=== PATIENT | female | born 1955 | race Caucasian/White ===

== ENCOUNTER → 2019-10-02 16:12 | Outpatient (CLI) | payer BC, SELFPAY ==
[2019-10-02 10:05] VITALS: BMI 24.9
== END ==
LOC: LABSPEC 16:13
PROVIDERS: PCP Nurse Practitioner Adult Health; Referring Provider Nurse Practitioner Women's Health; Visit Provider Nurse Practitioner Women's Health
DX: N89.8 Other specified noninflammatory disorders of vagina (principal)
CPT/HCPCS: 87070; 87205

== ENCOUNTER → 2020-08-12 16:06 | Outpatient (CLI) | payer BC, SELFPAY ==
[2020-08-12 14:19] VITALS: BMI 23.8
[2020-08-17 21:34] LABS: HPV APTIMA, High Risk Negative (Negative)
== END ==
PROVIDERS: PCP Nurse Practitioner Adult Health; Referring Provider Nurse Practitioner Women's Health; Visit Provider Nurse Practitioner Women's Health
DX: Z12.4 Encounter for screening for malignant neoplasm of cervix (principal)
CPT/HCPCS: 87624; 88175; G0145

== ENCOUNTER → 2020-08-26 12:13 | Outpatient (CLI) | payer BC, SELFPAY ==
[2020-08-12 14:19] VITALS: BMI 23.8
--- NOTE | 2020-08-26 12:15 | US_ITS ---
STUDY: ULTRASOUND OF THE FEMALE PELVIS - COMPLETE REASON FOR EXAM: Female, 65 years old. left ovarian cyst LMP: Unknown. TECHNIQUE: Transabdominal and Transvaginal TECHNICAL QUALITY: Adequate. COMPARISON: None. FINDINGS: The uterus is anteverted and is in a midline position. The uterus measures 5.9 x 2.8 cm. There is a Nabothian cyst of the cervix. The endometrium measures 3.4 mm in thickness, and is fluid distended. There is no demonstrated endometrial mass. There is no demonstrated myometrial mass. I.U.D. - The patient does not have an I.U.D. tiny nonspecific echogenic focus in the endometrium measuring 1 x 2 x 1 mm The right ovary is visualized. The right ovary measures 1.5 x 0.9 x 0.8 cm. There is no right ovarian cyst or ovarian mass. There is no visualized right adnexal mass or complex lesion. There is normal arterial and normal venous vascularity. The left ovary is visualized. The left ovary measures 1.8 x 1.5 x 1.4 cm. 2 minimally complicated left ovarian cysts, largest of which measures 8 x 7 x 6 mm. There is no visualized left adnexal mass or complex lesion. There is normal arterial and normal venous vascularity. There is no fluid in the cul-de-sac. The pre void volume of the bladder was ml. The post void volume of the bladder was ml. Polycystic ovary disease: No. US/Pelvic (Non ) IMPRESSION: 1. Fluid distended endometrium with tiny echogenic nonspecific focus 2. Subcentimeter minimally complicated left ovarian cyst Electronically Signed: Rubin Ny DO at 10:51 EST Tel , Service support ,
--- NOTE | 2020-08-26 12:15 | US_ITS ---
STUDY: ULTRASOUND OF THE FEMALE PELVIS - COMPLETE REASON FOR EXAM: Female, 65 years old. left ovarian cyst LMP: Unknown. TECHNIQUE: Transabdominal and Transvaginal TECHNICAL QUALITY: Adequate. COMPARISON: None. FINDINGS: The uterus is anteverted and is in a midline position. The uterus measures 5.9 x 2.8 cm. There is a Nabothian cyst of the cervix. The endometrium measures 3.4 mm in thickness, and is fluid distended. There is no demonstrated endometrial mass. There is no demonstrated myometrial mass. I.U.D. - The patient does not have an I.U.D. tiny nonspecific echogenic focus in the endometrium measuring 1 x 2 x 1 mm The right ovary is visualized. The right ovary measures 1.5 x 0.9 x 0.8 cm. There is no right ovarian cyst or ovarian mass. There is no visualized right adnexal mass or complex lesion. There is normal arterial and normal venous vascularity. The left ovary is visualized. The left ovary measures 1.8 x 1.5 x 1.4 cm. 2 minimally complicated left ovarian cysts, largest of which measures 8 x 7 x 6 mm. There is no visualized left adnexal mass or complex lesion. There is normal arterial and normal venous vascularity. There is no fluid in the cul-de-sac. The pre void volume of the bladder was ml. The post void volume of the bladder was ml. Polycystic ovary disease: No. US/Transvaginal Non- IMPRESSION: 1. Fluid distended endometrium with tiny echogenic nonspecific focus 2. Subcentimeter minimally complicated left ovarian cyst Electronically Signed: Rubin Ny DO at 10:51 EST Tel , Service support ,
== END ==
PROVIDERS: PCP Nurse Practitioner Adult Health; Referring Provider Nurse Practitioner Women's Health; Visit Provider Nurse Practitioner Women's Health
DX: N83.202 Unspecified ovarian cyst, left side (principal)
CPT/HCPCS: 76830; 76856

== ENCOUNTER → 2020-09-16 10:31 | Outpatient (CLI) | payer BC, SELFPAY ==
[2020-08-12 14:19] VITALS: BMI 23.8
--- NOTE | 2020-09-16 10:33 | BI_ITS ---
MAMMOGRAPHY - BILATERAL SCREENING REASON FOR EXAM: Female, 65 years old. Routine annual screening examination. PERTINENT HISTORY: Non-contributory. TECHNIQUE: Digital bilateral breast mahnaz (3D mammographic acquisition) in the CC and MLO projections. 2-D mediolateral oblique (MLO) and craniocaudad (CC) views of both breasts were obtained. CAD: Full Field Digital Mammography with Computer Added Detection was performed. COMPARISON: Comparison is made with prior outside examination dated 08/21/2019. FINDINGS: Breast Composition: The breasts are heterogeneously dense, which may obscure small masses. There are no dominant masses or suspicious calcifications. No other significant abnormalities are identified. There has been no significant change since the prior study. BI/SCREEN MAMM (CAD) W/MAHNAZ BILAT IMPRESSION: Stable bilateral screening mammogram. Yearly follow-up mammogram recommended. (A) ASSESSMENT CATEGORY: BIRADS Category 1: Negative. A letter regarding these results will be sent to the patient by the facility within 30 days. Approximately 10% of breast cancers are not detected by mammography. A normal mammogram should not delay biopsy of a clinically suspicious abnormality. [id number] Electronically Signed: Daniel Reese, at 12:20 EST , Service support ,
== END ==
PROVIDERS: PCP Nurse Practitioner Adult Health; Referring Provider Obstetrics & Gynecology; Visit Provider Obstetrics & Gynecology
DX: Z12.31 Encounter for screening mammogram for malignant neoplasm of breast (principal)
CPT/HCPCS: 77063; 77067

== ENCOUNTER → 2020-11-25 08:20 | Outpatient (CLI) | payer BC, SELFPAY ==
[2020-08-12 14:19] VITALS: BMI 23.8
--- NOTE | 2020-11-25 08:24 | US_ITS ---
STUDY: ULTRASOUND OF THE FEMALE PELVIS - COMPLETE REASON FOR EXAM: Female, 65 years old. Abnormal us -- fluid in endometrium LMP: Postmenopausal. TECHNIQUE: Transabdominal and Transvaginal TECHNICAL QUALITY: Adequate. COMPARISON: Comparison is made with prior examination of 08/26/2020. FINDINGS: The uterus is anteverted and is in a midline position. The uterus measures 6 cm x 3.3 cm x 2.7 cm. Normal uterine cervix. The endometrium measures 2 mm in thickness, and is fluid distended. There is a 5 mm x 5 mm x 4 mm hypoechoic nodule in the lower uterine segment. This may represent a small polyp. There is no demonstrated myometrial mass. I.U.D. - The patient does not have an I.U.D. The right ovary is visualized. The right ovary measures 1.7 cm x 0.9 cm x 1 cm. There is no right ovarian cyst or ovarian mass. There is no visualized right adnexal mass or complex lesion. There is normal arterial and normal venous vascularity. The left ovary is visualized. The left ovary measures 1.8 cm x 1.8 cm x 1.6 cm. A dominant follicle is seen within the ovary measuring 1 cm x 1 cm x 0.8 cm. There is no visualized left adnexal mass or complex lesion. There is normal arterial and normal venous vascularity. There is no fluid in the cul-de-sac. The pre void volume of the bladder was 287 ml. US/Transvaginal Non- IMPRESSION: Fluid distention of the endometrium with findings suggestive of a 5 mm x 5 mm x 4 mm endometrial polyp. Dominant follicle is seen in the left ovary. Electronically Signed: Daniel Reese MD at 14:32 EDT , Service support ,
--- NOTE | 2020-11-25 08:24 | US_ITS ---
STUDY: ULTRASOUND OF THE FEMALE PELVIS - COMPLETE REASON FOR EXAM: Female, 65 years old. Abnormal us -- fluid in endometrium LMP: Postmenopausal. TECHNIQUE: Transabdominal and Transvaginal TECHNICAL QUALITY: Adequate. COMPARISON: Comparison is made with prior examination of 08/26/2020. FINDINGS: The uterus is anteverted and is in a midline position. The uterus measures 6 cm x 3.3 cm x 2.7 cm. Normal uterine cervix. The endometrium measures 2 mm in thickness, and is fluid distended. There is a 5 mm x 5 mm x 4 mm hypoechoic nodule in the lower uterine segment. This may represent a small polyp. There is no demonstrated myometrial mass. I.U.D. - The patient does not have an I.U.D. The right ovary is visualized. The right ovary measures 1.7 cm x 0.9 cm x 1 cm. There is no right ovarian cyst or ovarian mass. There is no visualized right adnexal mass or complex lesion. There is normal arterial and normal venous vascularity. The left ovary is visualized. The left ovary measures 1.8 cm x 1.8 cm x 1.6 cm. A dominant follicle is seen within the ovary measuring 1 cm x 1 cm x 0.8 cm. There is no visualized left adnexal mass or complex lesion. There is normal arterial and normal venous vascularity. There is no fluid in the cul-de-sac. The pre void volume of the bladder was 287 ml. US/Pelvic (Non ) IMPRESSION: Fluid distention of the endometrium with findings suggestive of a 5 mm x 5 mm x 4 mm endometrial polyp. Dominant follicle is seen in the left ovary. Electronically Signed: Daniel Reese MD at 14:32 EDT , Service support ,
== END ==
PROVIDERS: PCP Nurse Practitioner Adult Health; Referring Provider Nurse Practitioner Women's Health; Visit Provider Nurse Practitioner Women's Health
DX: N85.8 Other specified noninflammatory disorders of uterus (principal)
CPT/HCPCS: 76830; 76856

== ENCOUNTER 2020-12-29 11:21 | Day surgery (SDC) | payer BC, SELFPAY ==
[2020-12-02 10:06] VITALS: BMI 24.7
[2020-12-16 13:21] VITALS: BMI 24.7
[2020-12-29] VITALS (9 sets, daily range): BP systolic 116–147; BP diastolic 67–79; PULSE 62–86; RESP 16–18; TEMP 36.3–36.9; O2SAT 93–97; BMI 23.9
--- NOTE | 2020-12-29 | EMB_PTH ---
PATIENT: OZZY MENDEZ LOC[place] [facility] [place][id number] AGE/SX: 65/F ROOM: RE12/29/[address]: Dr. Delia Chowdary MD : 1955 BED: DIS: 12/29/2020 SPEC #: [id number] RECD: 12/29/20 15:46 STATUS: [place] #: [id number] GHULAM: 12/29/20 00:[address]: Delia Chowdary DEPT: SURGICAL PATHOLOGY RECD BY: [employer] ENTERED: 12/30/20 09:35 SP TYPE: ENDOM BX/C VIKI DR: Mary Edwards, MOISESC Tissues: Endometrium, NOS Procedures: Surgery Specimen Level IV HEADER OPERATION: Hysteroscopy, dilation and curettage, polypectomy PRE-OP DIAGNOSIS: Endometrial polyp TISSUE SUBMITTED: Endometrial curettings and polyp MICROSCOPIC DIAGNOSIS Endometrial curettings and polyp: Cystic atrophic endometrium. Fragments of myometrium, consistent with submucosal leiomyoma. Fragments of benign squamous epithelium. See comment. PATRICIA:bhavana 12/31/2020 COMMENT Clinical correlation and appropriate follow up are necessary. MICROSCOPIC DESCRIPTION Slides are reviewed. GROSS DESCRIPTION Received in fixative is one container labeled with the patient's name and designated endometrial curettings and polyp. The specimen consists of multiple irregular fragments of lloyd soft tissue that in aggregate measure 2.5 x 0.8 x 0.1 cm. The specimen is totally submitted in one cassette. / PATRICIA:bhavana 12/30/20 TC:1 CPT: 51618
--- NOTE | 2020-12-29 11:14 | HP.PCM.OB_ITS ---
HPI - General HPI Narrative OZZY MENDEZ, is a 65 F who presents hysteroscopy, D&C, polypectomy, possible symphion for suspected endometrial polyp PFSH Medical History (Updated 12/29/20 @ 11:[address] Delia Chowdary MD) Abnormal Pap smear of cervix Hyperlipidemia Hypertension Home Medications aspirin 81 mg tablet,delayed release 81 mg PO DAILY 10/02/19 [History Last Taken Unknown] calcium carbonate 500 mg calcium (1,250 mg) capsule 500 mg PO DAILY 10/02/19 [History Last Taken Unknown] losartan 50 mg tablet 50 mg PO DAILY 10/02/19 [History Last Taken Unknown] milk thistle 500 mg capsule 500 mg PO DAILY 10/02/19 [History Last Taken Unknown] Cholecalciferol (Vitamin D3) [Vitamin D3] 5,000 unit PO DAILY 12/22/20 [History Last Taken Unknown] albuterol sulfate 1 - 2 puff INHALATION Q4H PRN PRN 12/22/20 [History Last Taken Unknown] clobetasol 1 applic TOPICAL DAILY PRN 12/22/20 [History Last Taken Unknown] conjugated estrogens See Rx Instructions .ROUTE QODAY 12/22/20 [History Last Taken Unknown] Allergy/AdvReac Type Severity Reaction Status Date / Time No Known Allergies Allergy Verified 12/22/20 09:08 Family History Mother Lymphoma Father Leukemia Surgical History S/P cholecystectomy S/P dilation and curettage S/P tubal ligation Social History (Updated 12/16/20 @ 16:[address] Delia Chowdary MD) Smoking Status: Former smoker alcohol intake: current details: occasionally substance use type: does not use caffeine: Yes what type of physical activity do you participate in: none seatbelt use: sometimes do you feel safe at home: Yes additional social history: -Blue Patient works at a [employer] History 2 Elective abortions Hx Para 2 Spontaneous abortions Hx # Term Pregnancies Ectopic pregnancies Hx # Pregnancies Multiple births # of living children ROS Eyes Eyes: Reports systems reviewed and no addt'l complaints, except as documented ENT HEENT: Reports systems reviewed and no addt'l complaints, except as documented Cardiovascular Cardiovascular: Reports systems reviewed and no addt'l complaints, except as documented Respiratory/Chest Respiratory/Chest: Reports systems reviewed and no addt'l complaints, except as documented Gastrointestinal Gastrointestinal: Reports systems reviewed and no addt'l complaints, except as documented Genitourinary Genitourinary: Reports systems reviewed and no addt'l complaints, except as documented Musculoskeletal Musculoskeletal: Reports systems reviewed and no addt'l complaints, except as documented Integumentary Integumentary: Reports systems reviewed and no addt'l complaints, except as documented Neurologic Neurologic: Reports systems reviewed and no addt'l complaints, except as documented Psychiatric Psychiatric: Reports systems reviewed and no addt'l complaints, except as documented Endocrine Endocrinology: Reports systems reviewed and no addt'l complaints, except as documented Hematologic/Lymphatic Hematologic/Lymphatic: Reports systems reviewed and no addt'l complaints, except as documented Allergic/Immunologic Allergic/Immunologic: Reports systems reviewed and no addt'l complaints, except as documented Physical Exam Const alert, oriented x3, no apparent distress, average body habitus, healthy appearing and well nourished HEENT normocephalic and moist oral mucous membranes Head and Scalp: atraumatic Eyes PERRL and EOMs intact bilaterally Neck full ROM Resp normal respiratory effort, no retractions and no use of accessory muscles Cardio regular rate and regular rhythm GI soft to palpation, non-tender and non-distended Extremity normal to inspection and full ROM Skin no rashes or lesions noted Neuro no focal motor deficits and no sensory deficits noted Psych mental status grossly normal, affect normal, speech normal and activity/motor behavior normal Assessment & Plan Assessment/Plan (1) Endometrial polyp: Status: Acute Code(s): N84.0 - Polyp of corpus uteri Plan: Patient presents for? hysteroscopy, D&C, possible symphion for endometrial polyp Medical and surgical histories reviewed with patient. No new changes Again reviewed risks of surgery and post-op precautions. All questions answered ROS negative Consent signed with patient in office
[2020-12-29] MEDS: Lactated Ringers 1,000 ML 100 ML IV (12:23)
[2020-12-29 12:32] LABS: Hematocrit 40.7 % (37-47); Hemoglobin 13.5 g/dL (12.0-15.0); Mean Corp Hgb Conc 33.2 g/dL (32-36); Mean Corpuscular Hgb 29.3 pg (27.0-32.0); Mean Corpuscular Volume 88.3 fL (81-99); Mean Platelet Vol. 9.2 fl (6.2-12.0); Platelet Count 246 K/mm3 (150-450); RBC Distribution Width SD 38.4 fl (35.1-43.9); Red Blood Count 4.61 M/mm3 (4.2-5.4); White Blood Count 6.7 K/mm3 (4.4-11.0)
--- NOTE | 2020-12-29 13:52 | PCM.OPRPT ---
Problems Associated Problem List Diagnoses (1) Endometrial polyp: Report of Operation Date of Procedure: 12/29/20 Pre-Operative Diagnosis: Suspected endometrial polyp Post-Operative Diagnosis: Same Surgery/Procedure Performed:: Hysteroscopy, D&C, symphion polypectomy Description of Surgical Findings:: Normal-appearing uterine cavity with small endometrial polyp energy engineer: None Type of Anesthesia: MAC Specimen's removed: EMC and polyp Estimated Blood Loss (mL): 10 Description of Procedure: The patient was taken to the operating room where general anesthesia was obtained without difficulty. She was prepped and draped in the dorsolithotomy position with yellowfin stirrups. Weighted speculum was placed in the posterior aspect of the vagina and the anterior lip of the cervix was grasped with a single-tooth tenaculum. The cervix was sequentially dilated to accommodate the hysteroscope. The hysteroscope was then introduced into the uterine cavity and the above findings were noted. The symphion device was then introduced through the hysteroscope and activated to fully resect the Polyp. Hemostasis was noted. The procedure was deemed complete. All instruments were then removed from the vagina. The patient was again from anesthesia and taken to the recovery room in stable condition. [id number]: [id number] Hysteroscopy, EMC,Polypectomy
== END 2020-12-29 15:25 | disposition home or self-care (01) ==
LOC: SDC 11:24 → AC 11:24
PROVIDERS: PCP Nurse Practitioner Adult Health; Referring Provider Nurse Practitioner Adult Health; Visit Provider Obstetrics & Gynecology
PROC: 0UB98ZZ Excision of Uterus, Via Natural or Artificial Opening Endoscopic (ICD-10-PCS; CPT 58558; principal; 2020-12-29 12:45)
DX: N84.0 Polyp of corpus uteri (principal); E78.5 Hyperlipidemia, unspecified; I12.9 Hypertensive chronic kidney disease with stage 1 through stage 4 chronic kidney disease, or unspecified chronic kidney disease; N18.30 Chronic kidney disease, stage 3 unspecified; J44.9 Chronic obstructive pulmonary disease, unspecified; Z79.82 Long term (current) use of aspirin; Z79.899 Other long term (current) drug therapy; Z20.828 Contact with and (suspected) exposure to other viral communicable diseases; Z87.891 Personal history of nicotine dependence
CPT/HCPCS: 00952; 58558; 85027; 86850; 86900; 86901; 87426; 88305; C9803; J7120; J2405

== ENCOUNTER 2021-09-27 13:47 | Outpatient (CLI) | payer BC, SELFPAY ==
--- NOTE | 2021-09-27 13:50 | BI_ITS ---
MAMMOGRAPHY - BILATERAL SCREENING REASON FOR EXAM: Female, 66 years old. Routine annual screening examination. PERTINENT HISTORY: Non-contributory. TECHNIQUE: Digital bilateral breast mahnaz (3D mammographic acquisition) in the CC and MLO projections. 2-D mediolateral oblique (MLO) and craniocaudad (CC) views of both breasts were obtained. CAD: Full Field Digital Mammography with Computer Added Detection was performed. COMPARISON: Comparison is made with prior study dated 09/16/2020. FINDINGS: Breast Composition: The breasts are heterogeneously dense, which may obscure small masses. There are no dominant masses or suspicious calcifications. No other significant abnormalities are identified. There has been no significant change since the prior study. BI/SCRN MAMM (CAD)W/MAHNAZ BILAT IMPRESSION: Stable bilateral screening mammogram. Yearly follow-up mammogram recommended. (A) ASSESSMENT CATEGORY: BIRADS Category 1: Negative. A letter regarding these results will be sent to the patient by the facility within 30 days. Approximately 10% of breast cancers are not detected by mammography. A normal mammogram should not delay biopsy of a clinically suspicious abnormality. [id number] Electronically Signed: Daniel Reese MD at 20:23 EST , Service support ,
== END 2021-09-27 23:59 | disposition short-term general hospital (02) ==
LOC: OPBI 13:48
PROVIDERS: PCP Nurse Practitioner Adult Health; Referring Provider Nurse Practitioner Women's Health; Visit Provider Nurse Practitioner Women's Health
DX: Z12.31 Encounter for screening mammogram for malignant neoplasm of breast (principal)
CPT/HCPCS: 77063; 77067

== ENCOUNTER → 2022-10-03 | Outpatient (CLI) | payer MEDICARE, SELFPAY ==
--- NOTE | 2022-10-03 13:28 | BI_ITS ---
MAMMOGRAPHY - BILATERAL SCREENING REASON FOR EXAM: Female, 67 years old. Routine annual screening examination. PERTINENT HISTORY: Non-contributory. TECHNIQUE: Digital bilateral breast mahnaz (3D mammographic acquisition) in the CC and MLO projections. 2-D mediolateral oblique (MLO) and craniocaudad (CC) views of both breasts were obtained. CAD: Full Field Digital Mammography with Computer Added Detection was performed. COMPARISON: Comparison is made with prior study dated 03/27/2022 and 09/16/2020. FINDINGS: Breast Composition: There are scattered areas of fibroglandular density. There are no dominant masses or suspicious calcifications. No other significant abnormalities are identified. There has been no significant change since the prior study. BI/SCRN MAMM (CAD)W/MAHNAZ BILAT IMPRESSION: Stable bilateral screening mammogram. Yearly follow-up mammogram recommended. (A) ASSESSMENT CATEGORY: BIRADS Category 1: Negative. A letter regarding these results will be sent to the patient by the facility within 30 days. Approximately 10% of breast cancers are not detected by mammography. A normal mammogram should not delay biopsy of a clinically suspicious abnormality. [id number] Electronically Signed: Daniel Reese MD at 14:17 EST ,
== END | disposition home or self-care (01) ==
PROVIDERS: PCP Nurse Practitioner Adult Health; Visit Provider Nurse Practitioner Women's Health
DX: Z12.31 Encounter for screening mammogram for malignant neoplasm of breast (principal)
CPT/HCPCS: 77063; 77067

== ENCOUNTER → 2022-10-03 | Outpatient (CLI) | payer MEDICARE, SELFPAY | END | disposition home or self-care (01) | PROVIDERS: PCP Nurse Practitioner Adult Health; Visit Provider Nurse Practitioner Women's Health | DX: Z00.00 Encounter for general adult medical examination without abnormal findings (principal) ==

== ENCOUNTER 2023-02-15 10:00 | Outpatient (RCR) | payer MEDICARE, SELFPAY ==
--- NOTE | 2023-01-16 13:21 | HP.PTEVAL_ITS ---
Patient's Visit Information OZZY MENDEZ is a 67 year old F referred to Physical Therapy by Dr. Yash Fonseca, DO with a diagnosis of CERVICALGIA, SPRAIN OF JOINTS AND LIGAMENTS OF NECK. Date of Evaluation: 01/16/23 Physical Therapist: Tj Hsieh, PT, Cert MDT, OCS - Visit Plan Frequency: 2x /Week Duration: 4 Weeks Plan: PT INTERVETIONS POSTURAL EX'S ,STRENGTHENING ,MANAUL THERAPY STM ,POSTURE TRAINING AND US - Subjective This 67 y/o female presents to physical therapy for cervical pain. Patients seen Dr Fonseca had x-rays showed DDD .Then recommended PT .Patient has had symptoms ~ 2weeks. Symptoms described as ache in AM and PM Location bilateral neck and UT. 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 Alleviating factors cream . Patient denies paresthesia/tingling . Denies CHANCE/tinnitus/nausea. [id number] sleeping. Pain affects QOL and function . Patient goals to have no pain. SOCAIL: . 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 NEURO: denies paresthesia/tingling ,reflexes intact C5-6-7 2/3. AROM: BUE WFL. CERVICAL ROM: flexion min loss ,extension ,lateral flexion/rotation min loss. MMT: grossly 4/5 ,except shoulders 4-/5. PALAPTION: levator scapular tender - Special Tests C/S Radiculapathy - Left Upper limb tension test: Negative C/S Radiculapathy - Right Upper limb tension test: Negative C/S Radiculapathy - Left Spurlings: Negative C/S Radiculapathy - Right Spurlings: Negative C/S Radiculapathy - Left Cervical distraction: Negative C/S Radiculapathy - Right Cervical distraction: Negative C/S Radiculapathy - Left Relief test: Negative C/S Radiculapathy - Right Relief test: Negative Sharp Mary: Negative Vertebral Artery Test: Negative Alar Ligament Test: Negative Cervical Sitting: Protrusion - Mechanical Response: No effect Cervical Sitting: Protrusion - Symptoms During Testing: No effect Cervical Sitting: Protrusion - Symptoms After Testing: No effect Cervical Sitting: Retraction - Mechanical Response: No effect Cervical Sitting: Retraction - Symptoms During Testing: No effect Cervical Sitting: Retraction - Symptoms After Testing: No effect Cervical Sitting: Retraction-Extension - Mechanical Response: No effect Cerv Sitting: Retraction-Extension - Symptoms During Testing: No effect Cerv Sitting: Retraction-Extension - Symptoms After Testing: No effect Cervical Sitting: Sidebend Right - Mechanical Response: No effect Cervical Sitting: Sidebend Right - Symptoms During Testing: No effect Cervical Sitting: Sidebend Right - Symptoms After Testing: No effect Cervical Sitting: Sidebend Left - Mechanical Response: No effect Cervical Sitting: Sidebend Left - Symptoms During Testing: No effect Cervical Sitting: Sidebend Left - Symptoms After Testing: No effect Cervical Sitting: Rotation Right - Mechanical Response: No effect Cervical Sitting: Rotation Right - Symptoms During Testing: No effect Cervical Sitting: Rotation Right - Symptoms After Testing: No effect Cervical Sitting: Rotation Left - Mechanical Response: No effect Cervical Sitting: Rotation Left - Symptoms During Testing: No effect Cervical Sitting: Rotation Left - Symptoms After Testing: No effect Cervical Sitting: Flexion - Mechanical Response: No effect Cervical Sitting: Flexion - Symptoms During Testing: No effect Cervical Sitting: Flexion - Symptoms After Testing: No effect - Balance/Special Test Scores Oswestry Neck Score: 15 - Goals Goal 1:: I with HEP for neck Goal Time Frame: 4-6 Weeks Goal 2:: Patient improve posture for job demands 80% of the time Goal Time Frame: 4-6 Weeks Goal 3:: Patient to demonstrate 50% improvement with improved function and less pain Goal Time Frame: 4-6 Weeks Goal 4:: Patinet Goal Time Frame: 4-6 Weeks Goal 5:: Patient improve neck oswestry score by 5 points or > to improve function - Rehabilitation Potential Physical Therapy Diagnosis: This patient has neck pain with pain during position am motion testing 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 with decrease posture thus benefit from skilled PT Rehabilitation Potential: Good - Anticipated Interventions Patient/Client Instruction: Educate patient on: Condition, Plan of Care For the Purpose of:: To decrease pain, To increase ROM, To improve muscle performance and motor function, To increase tolerance to activity/condition/position, To improve performance and independence with ADL's, To decrease level of supervision to perform tasks, To improve ability of physical actions for home/community/work/leisure, To improve health of tissue, T o decrease soft tissue restriction, To increase flexibility/ROM, To reduce risk of recurrence Therapeutic Exercise to Include: Strength training, Body mechanics, Postural training, Flexibilty training, Active ROM For the Purpose of:: To decrease pain, To increase ROM, To improve muscle performance and motor function, To improve ability to perform ADL's, To increase tolerance to activity/condition/position, To improve ability of physical actions for home/community/work/leisure, To improve health of tissue, To decrease soft tissue restriction, To increase flexibility/ROM Manual Therapy Techniques to Include: Mobilization, Soft tissue mobilization For the Purpose of:: To decrease pain, To improve nutrient delivery to tissue, To increase oxygenation perfusion, To decrease soft tissue restriction, To increase flexibility/ROM TENS: Yes IF ES: Yes Cryotherapy (ice pack, ice massage): Yes Thermo therapy (hot pack): Yes Ultrasound (thermal/non thermal): Yes For the Purpose of:: To decrease pain, To increase ROM, To increase oxygenation perfusion, To improve health of tissue, To decrease soft tissue restriction, To increase flexibility/ROM Thank you for the opportunity to evaluate your patient. For Medicare and Medicare HMO plans, please review the plan of care and approve it. It will need to be FAXED BACK to us at [phone] for Medicare purposes. For Medicare only, by signing this I certify the plan of care. Please let me know if there are questions or concerns regarding this plan of care. Physician Signature: Date:
--- NOTE | 2023-05-05 08:31 | HP.PTDCSUM ---
Discharge Summary D/C summary: It has been my pleasure to treat OZZY MENDEZ referred by Dr. Yash Fonseca DO, with the diagnosis of CERVICALGIA, SPRAIN OF JOINTS AND LIGAMENTS OF NECK for a total of 8 visit(s). Discharge Date: 02/15/23 Please see the following information for a summary of their discharge status. Subjective Subjective: Doing well Pain Bilateral Neck: Pain Intensity (Out of 10): 0 Overall Improvement % Improvement: 75 Objective Objective/Function: POSTURE: rounded shoulders head forward. NEURO: denies paresthesia/tingling ,reflexes intact C5-6-7 2/3. AROM: BUE WFL. CERVICAL ROM: flexion min loss ,extension ,lateral flexion/rotation min loss. MMT: grossly 4/5 ,except shoulders 4-/5. PALAPTION: levator/scapular tender Goals Goal 1:: I with HEP for neck Goal Progress: Goal Met Goal 2:: Patient improve posture for job demands 80% of the time Goal Progress: Progressing Goal 3:: Patient to demonstrate 50% improvement with improved function and less pain Goal Progress: Goal Met Goal 4:: Pat[place] Goal Progress: Goal Met Goal 5:: Patient improve neck oswestry score by 5 points or > to improve function Goal Progress: Goal Met Plan Plan: RTD D/C Information Discharge Comments: HEP d/c sentence: If there are questions or concerns regarding this patient's physical therapy, please feel free to call me at [phone]. Thank you for the referral of this patient. Sincerely, Tj Hsieh, PT, Cert MDT, OCS Balance/Gait/Functional tests Balance/Special Test Scores Oswestry Neck Score: 4 Improvement % Improvement: 75
== END 2023-02-15 19:00 | disposition home or self-care (01) ==
LOC: PT 10:00
PROVIDERS: PCP Nurse Practitioner Adult Health; Referring Provider Orthopaedic Surgery; Visit Provider Orthopaedic Surgery
DX: S13.9XXD Sprain of joints and ligaments of unspecified parts of neck, subsequent encounter (principal)
CPT/HCPCS: 97110; 97140; 97162; 97530

== ENCOUNTER → 2023-10-16 | Outpatient (CLI) | payer MEDICARE, SELFPAY ==
--- NOTE | 2023-10-16 10:39 | BI_ITS ---
MAMMOGRAPHY - BILATERAL SCREENING REASON FOR EXAM: Female, 68 years old. Routine annual screening examination. PERTINENT HISTORY: Non-contributory. TECHNIQUE: Digital bilateral breast mahnaz (3D mammographic acquisition) in the CC and MLO projections. 2-D mediolateral oblique (MLO) and craniocaudad (CC) views of both breasts were obtained. CAD: Full Field Digital Mammography with Computer Added Detection was performed. COMPARISON: Comparison is made with prior study dated October 03, 2022 and September 27, 2021. FINDINGS: Breast Composition: There are scattered areas of fibroglandular density. There are no dominant masses or suspicious calcifications. No other significant abnormalities are identified. There has been no significant change since the prior study. BI/SCRN MAMM (CAD)W/MAHNAZ BILAT IMPRESSION: Stable bilateral screening mammogram. Yearly follow-up mammogram recommended. (A) ASSESSMENT CATEGORY: BIRADS Category 1: Negative. A letter regarding these results will be sent to the patient by the facility within 30 days. Approximately 10% of breast cancers are not detected by mammography. A normal mammogram should not delay biopsy of a clinically suspicious abnormality. [id number] Electronically Signed: Daniel Reese MD at 11:08 EST ,
== END | disposition home or self-care (01) ==
LOC: OPBI 10:38
PROVIDERS: PCP Nurse Practitioner Adult Health; Referring Provider Nurse Practitioner Women's Health; Visit Provider Nurse Practitioner Women's Health
DX: Z12.31 Encounter for screening mammogram for malignant neoplasm of breast (principal)
CPT/HCPCS: 77063; 77067